=== PATIENT | female | born 1950 | race Caucasian/White ===

== ENCOUNTER 2016-12-21 17:28 | Emergency (ER) | payer OTHER ==
[2016-12-21 17:40] VITALS: BP 118/65; PULSE 63; RESP 18; TEMP 98.1; O2SAT 93
--- NOTE | 2016-12-21 18:27 | UCPHY ---
H & P Time Seen by Provider: 12/21/16 18:14 Patient Type: Established HPI/ROS: This patient complains of ongoing cough. She reports that she had bronchitis diagnosed in October intake [facility] with improvement but never complete resolution of her symptoms over the past few days she has developed coughing feeling of deep chest congestion. She occasionally has associated sputum production. She has no exacerbating or alleviating factors. Her cough recurred starting this weekend-a few days prior to arrival. ROS: No high fevers or chills. She reports no other constitutional symptoms. HEENT: She has associated nasal congestion, without sinus pain. headache or other complaints. Pulmonary: No pleuritic pain. No respiratory distress. Cardiovascular: No chest pain or lightheadedness. No lower extremity swelling/ calf pain. GI: No nausea vomiting or belly pain. 7 point ROS is otherwise negative. Social History: Nonsmoker. No drug use. Smoking Status: Never smoked Physical Exam: Physical Exam Vital signs are normal. General: No acute distress HEENT: Nose: Clear discharge bilaterally. No sinus tenderness to percussion. Ears: External canals and tympanic membranes are clear with no erythema or abnormal findings bilaterally. Oropharynx: No erythema or exudates. No dysphonia. No drooling or stridor. Eyes: Pupils equal and react to light. Extraocular motions are intact. Neck: Supple with no meningismus. No lymphadenopathy Lungs: Patient has bilateral rhonchi and expiratory wheeze-moderate. No rales. Cardiac: Regular rate and rhythm with no murmur gallop or rub Skin: No rash or pallor. Neuro: Alert with no focal deficits noted. Initial differential diagnosis: Recurrent bronchitis, pneumonia, URI with cough /RAD Constitutional: Initial Vital Signs Temperature (C) 36.7 C 12/21/16 17:38 Heart Rate 63 12/21/16 17:38 Respiratory Rate 18 12/21/16 17:38 Blood Pressure 118/65 12/21/16 17:38 O2 Sat (%) 93 12/21/16 17:38 O2 Delivery Mode Room Air Allergies/Adverse Reactions: Quinolones Allergy (Verified 08/28/16 11:45) Home Medications: Medication Instructions Recorded No Known Home Meds 08/28/16 Albuterol Hfa Anes Only [Proair 2 puffs IH Q4 PRN #1 mdi 12/21/16 Hfa Icu (*)] Fluticasone Hfa 220 Mcg [Flovent 2 puffs IH DAILY #1 mdi 12/21/16 220 MCG Hfa MDI (*)] Medical Decision Making ED Course/Re-evaluation: Discussion: Patient here with recurrent bronchitis treated previously with macrolide. I think that she has a viral bronchitis given current findings I counseled regarding this. No clinical evidence of lower respiratory infection. She appears well without evidence of sepsis Departure - Departure Disposition: Home, Routine, Self-Care Clinical Impression: Viral bronchitis Condition: Good Instructions: Acute Bronchitis (ED) Additional Instructions: Diagnosis: Viral bronchitis Plan: Humidifier Albuterol inhaler with spacer for cough, wheeze or shortness of breath Flovent steroid inhaler Return for any significant worsening despite the treatment plan Referrals: Jackelyn Rascon MD [Primary Care Provider] - As per Instructions Prescriptions: Albuterol Hfa Anes Only [Proair Hfa Icu (*)] 2 puffs IH Q4 PRN #1 mdi PRN Reason: Wheezing Fluticasone Hfa 220 Mcg [Flovent 220 MCG Hfa MDI (*)] 2 puffs IH DAILY #1 mdi - PQRS PQRS Measurement: NA
== END 2016-12-21 18:27 | disposition home or self-care (01) ==
LOC: CED 17:28
DX: J20.8 Acute bronchitis due to other specified organisms (principal)
CPT/HCPCS: 99214-PO; G0463-PO

== ENCOUNTER → 2018-02-10 | Outpatient (CLI) | payer BC ==
[~2018-02-10] MED LIST: DEPO METHYLPREDNISOLONE 80 MG/ML SDV ONE; IOPAMIDOL (ISOVUE 370) 100 ML BTL IV ONE; LIDOCAINE 1% 300 MG/30 ML SDV ONE; ROPIVACAINE HCL 150 MG/30 ML INJ ONE
== END ==
LOC: FIMAGING 10:05
PROVIDERS: ATTEND Orthopaedic Surgery
DX: M16.11 Unilateral primary osteoarthritis, right hip (principal)
CPT/HCPCS: J1040; J2795; Q9967